=== PATIENT | male | born 1980 | race Hispanic/Latino ===

== ENCOUNTER 2018-03-15 15:31 | Emergency (ER) | payer SELFPAY ==
--- NOTE | 2018-03-15 16:26 | RAD ---
RADIOGRAPH CHEST 1 VIEW: Date: 03/15/18 Time: 3:50 p.m. HISTORY: 37-year-old male status post syncope and collapse. COMPARISON: None. FINDINGS: The lungs are very hypoinflated, making this a limited study. No abdiaziz pulmonary alveolar edema or co nsolidation identified. No effacement of lateral costophrenic angles. No pneumothorax. IMPRESSION: 1. Limited study because of very low lung volumes. 2. No gross evidence of acute cardiopulmonary disease. JN [] POS: CET
--- NOTE | 2018-03-15 16:44 | CT ---
CT BRAIN NONCONTRAST: 03/15/18 HISTORY: 37-year-old male status post loss of consciousness and fall. FINDINGS: There is no midline shift or any other mass effect. There is no evidence of acute intracranial hemor rhage, large cortical infarct, obstructive hydrocephalus, or extraaxial fluid collection. The calvar ium is intact. IMPRESSION: No acute intracranial findings. jn [] POS: CET
[2018-03-15 16:46] LABS: Bilirubin Negative (Negative); Blood, Urine Negative (Negative); Clarity CLEAR (Clear); Glucose, Urine (Dipstick) Negative (Negative); Leukocyte Negative (Negative); Nitrite Negative (Negative); Protein, Urine (Dipstick) Negative (Neg-Trace); Specific Gravity, Urine 1.005 (1.002-1.036); Urobilinogen 0.2 mg/dL (0.2-1.0); pH, Urine 5.5 (5.0-9.0)
--- NOTE | 2018-03-15 16:47 | CT ---
CERVICAL SPINE CT SCAN WITHOUT IV CONTRAST: 03/15/18 HISTORY: 37-year-old male with history of cervical injury following a fall. Mild disc osteophytosis changes noted. No evidence for acute fracture or facet dislocation. IMPRESSION: Unremarkable cervical spine CT. POS: DARWIN
[2018-03-15 16:57] LABS: Hemoglobin 13.8 g/dL (14.0-18.0); Mean Corpuscular HGB CONC 35.7 g/dL (32.0-36.0); Mean Corpuscular Hemoglobin 30.3 pg (27.0-31.0); Mean Corpuscular Volume 84.8 fL (78.0-98.0); Platelet Count 191 thou/uL (130-400); RBC Distribution Width 13.7 % (11.5-14.5); Red Blood Cell (RBC) Count 4.55 mill/uL (4.70-6.10); White Blood Cell (WBC) Count 9.4 thou/uL (4.8-10.8)
[2018-03-15 17:11] LABS: ALT (SGPT) 27 U/L (8-55); AST (SGOT) 32 U/L (5-34); Albumin 3.4 g/dL (3.5-5.0); Alkaline Phosphatase 67 U/L (40-150); Anion Gap 16 mmol/L (10-20); BUN (Urea Nitrogen) 7 mg/dL (8.9-20.6); Bilirubin, Total 0.2 mg/dL (0.2-1.2); Calc. Creatinine Clearance 0 mL/min (70-130); Calcium 7.5 mg/dL (7.8-10.44); Carbon Dioxide 21 mmol/L (22-29); Chloride 106 mmol/L (98-107); Estimated GFR-MDRD Greater than 90; Globulin 3.1 g/dL (2.4-3.5); Glucose 185 mg/dL (70-105); Magnesium 2.1 mg/dL (1.6-2.6); Potassium 3.4 mmol/L (3.5-5.1); Protein, Total 6.5 g/dL (6.0-8.3); Sodium 140 mmol/L (136-145)
[2018-03-15 17:14] LABS: CKMB 3.8 ng/mL (0-6.6); Troponin I Less than 0.010 ng/mL (< 0.028)
[2018-03-15 17:16] LABS: Base Excess-Venous -2.3 mmol/L (0 (+/- 2.5)); Bicarbonate (HCO3v) 23.1 mmol/L (1.0-85.0); CO2 Tension (PvCO2) 41.2 mmHg (41.0-51.0); Calcium, Ionized 0.83 mmol/L (1.12-1.32); Hemoglobin - Calc 13.4 g/dL (12.0-18.0); O2 Tension (PvO2) 87.4 mmHg (35.0-45.0); Potassium 3.3 mmol/L (3.4-4.7); T. Carbon Dioxide 24.4 mmol/L (1.0-85.0); pH (Venous) 7.357 (7.35-7.45); vO2 Saturation-calc 96.3 % (94-98)
[2018-03-15 17:20] LABS: Band 2 % (5-11); Eosinophils 1 % (0-10); Lymphocytes 48 % (21-51); MDiff Complete? YES; Monocytes 5 % (0-10); Neutrophil 43 % (42-75); Nucleated RBC 1 % (0); PLT Morphology Comment Appears Adequate; Reactive Lymphocytes 1 % (0-10)
[2018-03-15] MEDS ORDERED: Calcium Gluc 4.6 MEQ/10 ML (100 MG/ML) ONE (18:01)
[2018-03-15] MEDS ORDERED: Multivitamins, Adult 10 ML, Thiamine HCl 100 MG, Folic Acid 1 MG in Dextrose 5 %-0.45 %... IV SCH (21:00)
[2018-03-15 21:23] LABS: Actual Bicarbonate (HCO3a) 25.2 mEq/L (22-28); Base Excess (BEa) -0.7 mEq/L (-2.0 to +3.0); CO2 Tension 46.7 mmHg (35.0-45.0); Hemoglobin (Hb) 13.5 g/dL (14.0-18.0); O2 Tension (PaO2) 68.4 mmHg (80.0-100.0); pH, Arterial 7.35 (7.35-7.45)
[2018-03-15 21:24] LABS: ALV-art Gradient 22.955 (0-20); Analyzer IN Cardio ER; Calcium, Ionized 1.1 mmol/L (1.12-1.30); Puncture Site RRA
[2018-03-15 21:26] LABS: Amphetamine Not Detected (NotDetected); Barbiturates Screen Not Detected (NotDetected); Benzodiazepine Screen Not Detected (NotDetected); Cocaine Metabolite Screen Not Detected (NotDetected); Medtox Control Line Valid? VALID (VALID); Medtox Reader # READER 1; Methadone Not Detected (NotDetected); Methamphetamine Not Detected (NotDetected); Opiate Screen Not Detected (NotDetected); Oxycodone Screen Not Detected (NotDetected); Phencyclidine (PCP) Not Detected (NotDetected); THC/Cannabinoid Screen Not Detected (NotDetected); Tricyclic Screen Not Detected (NotDetected)
[2018-03-15 21:46] LABS: Acetaminophen Less than 6.0 mcg/mL (10.0-30.0); Alcohol 292 mg/dL (Less than 10); Salicylate Less than 8.0 mg/dL (15.0-30.0)
== END 2018-03-16 07:31 | disposition home or self-care (01) ==
LOC: ERS 15:31
DX: F10.129 Alcohol abuse with intoxication, unspecified (principal); I10 Essential (primary) hypertension; F17.210 Nicotine dependence, cigarettes, uncomplicated
CPT/HCPCS: 36415; 70450; 71045; 72125; 80053; 80306; 80307; 81003; 82330; 82553; 82803; 82805; 83690; 83735; 84484; 85025; 93005; 96361; 96365; 96366; 96375; J3411; J7042

== ENCOUNTER 2018-03-16 13:39 | Emergency (ER) | payer SELFPAY ==
[2018-03-16 14:06] LABS: Bilirubin Negative (Negative); Blood, Urine Negative (Negative); Clarity CLEAR (Clear); Glucose, Urine (Dipstick) Negative (Negative); Leukocyte Negative (Negative); Nitrite Negative (Negative); Protein, Urine (Dipstick) Negative (Neg-Trace); Specific Gravity, Urine 1.002 (1.002-1.036); Urobilinogen 0.2 mg/dL (0.2-1.0); pH, Urine 6.5 (5.0-9.0)
== END 2018-03-16 15:25 | disposition home or self-care (01) ==
LOC: ERS 13:39
DX: F10.129 Alcohol abuse with intoxication, unspecified (principal); E11.9 Type 2 diabetes mellitus without complications; I10 Essential (primary) hypertension; F17.210 Nicotine dependence, cigarettes, uncomplicated
CPT/HCPCS: 81003; 99284

== ENCOUNTER 2018-03-17 11:43 | Emergency (ER) | payer SELFPAY | END 2018-03-17 13:10 | disposition home or self-care (01) | LOC: ERS 11:43 | DX: F10.10 Alcohol abuse, uncomplicated (principal); E11.9 Type 2 diabetes mellitus without complications; I10 Essential (primary) hypertension; F17.210 Nicotine dependence, cigarettes, uncomplicated | CPT/HCPCS: 99284 ==

== ENCOUNTER 2018-03-19 15:38 | Emergency (ER) | payer SELFPAY | END 2018-03-19 16:52 | disposition home or self-care (01) | LOC: ERS 15:38 | DX: F10.129 Alcohol abuse with intoxication, unspecified (principal); F17.210 Nicotine dependence, cigarettes, uncomplicated; I10 Essential (primary) hypertension; E11.9 Type 2 diabetes mellitus without complications | CPT/HCPCS: 99284 ==

== ENCOUNTER 2018-03-19 18:20 | Emergency (ER) | payer SELFPAY | END 2018-03-19 19:56 | disposition home or self-care (01) | LOC: ERS 18:20 | DX: F10.129 Alcohol abuse with intoxication, unspecified (principal); I10 Essential (primary) hypertension; F17.210 Nicotine dependence, cigarettes, uncomplicated; E11.9 Type 2 diabetes mellitus without complications | CPT/HCPCS: 99284 ==

== ENCOUNTER 2018-03-20 15:28 | Observation (INO) | payer OTHER, SELFPAY ==
[2018-03-20] MEDS ORDERED: Lorazepam 2 MG/ML VIAL ONE (15:40)
[2018-03-20] MEDS ORDERED: Folic Acid 1 MG TAB ONE (16:00)
[2018-03-20 16:09] LABS: #Lymphocytes 2.4 thou/uL (1.20-3.40); #Monocytes 0.5 thou/uL (0.11-0.59); #Neutrophils 2.2 thou/uL (1.40-6.50); %Basophils 0.8 % (0.0-1.0); %Eosinophils 0.9 % (0.0-10.0); %Monocytes 9.9 % (0.0-10.0); %Neutrophils 42.4 % (42.0-75.0); Hemoglobin 15.5 g/dL (14.0-18.0); Mean Corpuscular HGB CONC 35.4 g/dL (32.0-36.0); Mean Corpuscular Volume 84.7 fL (78.0-98.0); Platelet Count 152 thou/uL (130-400); Red Blood Cell (RBC) Count 5.18 mill/uL (4.70-6.10); White Blood Cell (WBC) Count 5.2 thou/uL (4.8-10.8)
[2018-03-20] MEDS ORDERED: Thiamine HCl 200 MG/2 ML VIAL SLOW IVP SCH (16:15)
[2018-03-20 16:23] LABS: ALT (SGPT) 22 U/L (8-55); AST (SGOT) 28 U/L (5-34); Alkaline Phosphatase 77 U/L (40-150); Anion Gap 22 mmol/L (10-20); BUN (Urea Nitrogen) Less than 4 mg/dL (8.9-20.6); Bilirubin, Total 0.6 mg/dL (0.2-1.2); Calc. Creatinine Clearance 0 mL/min (70-130); Calcium 8.6 mg/dL (7.8-10.44); Carbon Dioxide 19 mmol/L (22-29); Chloride 100 mmol/L (98-107); Estimated GFR-MDRD Greater than 90; Globulin 3.5 g/dL (2.4-3.5); Glucose 129 mg/dL (70-105); Protein, Total 7.5 g/dL (6.0-8.3); Sodium 137 mmol/L (136-145)
[2018-03-20] MEDS ORDERED: Ondansetron HCl/PF 4 MG/2 ML Vial ONE (16:23)
[2018-03-20 16:27] LABS: Acetaminophen Less than 6.0 mcg/mL (10.0-30.0); Alcohol 13 mg/dL (Less than 10); CK (CPK) 315 U/L (30-200); Salicylate Less than 8.0 mg/dL (15.0-30.0)
[2018-03-20 16:54] LABS: Bilirubin Negative (Negative); Blood, Urine Negative (Negative); Clarity CLEAR (Clear); Glucose, Urine (Dipstick) Negative (Negative); Leukocyte Negative (Negative); Nitrite Negative (Negative); Protein, Urine (Dipstick) Negative (Neg-Trace); Specific Gravity, Urine 1.004 (1.002-1.036); Urobilinogen 0.2 mg/dL (0.2-1.0)
[2018-03-20 17:04] LABS: Amphetamine Not Detected (NotDetected); Barbiturates Screen Not Detected (NotDetected); Benzodiazepine Screen Not Detected (NotDetected); Cocaine Metabolite Screen Not Detected (NotDetected); Medtox Control Line Valid? VALID (VALID); Medtox Reader # READER 1; Methadone Not Detected (NotDetected); Methamphetamine Not Detected (NotDetected); Opiate Screen Not Detected (NotDetected); Oxycodone Screen Not Detected (NotDetected); Phencyclidine (PCP) Not Detected (NotDetected); THC/Cannabinoid Screen Not Detected (NotDetected); Tricyclic Screen Not Detected (NotDetected)
[2018-03-20] MEDS ORDERED: Dextrose 5% in Water 1,000 ML IV PRN (18:45)
[2018-03-20] MEDS ORDERED: Dextrose 50% Abboject 50 ML SYRINGE SLOW IVP PRN (18:45)
[2018-03-20] MEDS ORDERED: Insulin Regular 300 UNITS/3 ML VIAL SC PRN (18:45)
--- NOTE | 2018-03-20 18:56 | PDOC.FPRHP ---
- History of Present Illness Chief Complaint: alcohol withdrawal History of Present Illness: Patient is a 37 yo M with a PMH significant for multiple visits to the ED within the last week for alcohol intoxication and withdrawal. He was brought to correction by police yesterday after his last visit to the ED. He stated he started feeling "really bad" today and "like he was going to faint." He endorses drinking daily for the past month after his girlfriend threw him out of her house. He states he drinks 5 Mad dog beers/day (each 1 L) or until he passes out. He endorses having abdominal pain beginning today that is located in the mid epigastric region and radiates to the back. His pain is 10/10. He notes having darker stools than normal but no abdiaziz blood. He states he has been nauseous and has vomited over 5 times today. The consistency has been white fluid and he denies vomiting blood. He endorses subjective fevers for the past couple days in addition to shaking. He also endorses a headache the past couple days. Patient has not been able to tolerate fluid or food the past day. He has mostly been drinking and not eating much the past several days. ED Course: IVF, zofran, multivitamins, folic acid, thiamine, lorazepam X 1 - Allergies/Adverse Reactions Allergies Allergy/AdvReac Type Severity Reaction Status Date / Time No Known Drug Allergies Allergy Unverified 03/15/18 20:40 - History PMHx: DM, HTN, sleep apnea, fatty liver PSHx: none FHx: non contributory Social: 25 pack year hx, occasionally smokes week, heavy drinker - about 1 L/day , denies drug use - Review of Systems General: reports: fever/chills, weight/appetite/sleep changes. denies: night sweats, fatigue Eyes: denies: eye pain, vision changes ENT: denies: nasal congestion, rhinorrhea Respiratory: reports: shortness of breath. denies: cough, congestion Cardiovascular: reports: chest pain, paroxysmal nocturnal dyspnea. denies: palpitation, edema Gastrointestinal: reports: nausea, vomiting, abdominal pain, other (dark blood but not sure if its blood or not). denies: diarrhea, constipation Genitourinary: denies: incontinence, dysuria, polyuria Skin: reports: rashes (bites all over) Musculoskeletal: denies: pain, tenderness, stiffness Neurological: reports: weakness. denies: numbness, syncope - Vital signs BP: 156/103 HR: 97 RR: 20 Tmax: 99.5 Pox: 95% on RA Wt: 79.38kg - Physical Exam Constitutional: awake, alert and oriented -Constitutional: Patient looks diaphoretic, uncomfortable and in mild distress on the bed, cooperative, poorly groomed HEENT: normocephalic and atraumatic, PERRLA, EOMI, grossly normal vision, grossly normal hearing, MMM Chest: no-tender to palpation Heart: RRR, normal S1/S2, no murmurs/rubs/gallops, pulses present Lungs: CTAB, no respiratory distress, good air movement, no retractions Abdomen: soft, bowel sounds present, no masses/distention -Abdomen: Diffusely TTP, more in the LLQ, mild guarding Musculoskeletal: normal structure, normal tone Neurological: no focal deficit, CN II-XII intact -Skin: multiple bites over extremities and abdomen Heme/Lymphatic: no unusual bruising or bleeding, no purpura, no petechia Psychiatric: normal mood and affect FMR H&P: Results - Labs Result Diagrams: 03/20/18 15:53 03/20/18 15:53 Lab results: WBC 5.2 thou/uL (4.8-10.8) 03/20/18 15:53 Hgb 15.5 g/dL (14.0-18.0) 03/20/18 15:53 Hct 43.9 % (42.0-52.0) 03/20/18 15:53 MCV 84.7 fL (78.0-98.0) 03/20/18 15:53 Plt Count 152 thou/uL (130-400) 03/20/18 15:53 Neutrophils % 42.4 % (42.0-75.0) 03/20/18 15:53 Sodium 137 mmol/L (136-145) 03/20/18 15:53 Potassium 4.0 mmol/L (3.5-5.1) 03/20/18 15:53 Chloride 100 mmol/L (98-107) 03/20/18 15:53 Carbon Dioxide 19 mmol/L (22-29) L 03/20/18 15:53 BUN Less than 4 mg/dL (8.9-20.6) L 03/20/18 15:53 Creatinine 0.73 mg/dL (0.6-1.3) 03/20/18 15:53 Glucose 129 mg/dL (70-105) H 03/20/18 15:53 Calcium 8.6 mg/dL (7.8-10.44) 03/20/18 15:53 Total Bilirubin 0.6 mg/dL (0.2-1.2) 03/20/18 15:53 AST 28 U/L (5-34) 03/20/18 15:53 ALT 22 U/L (8-55) 03/20/18 15:53 Alkaline Phosphatase 77 U/L (40-150) 03/20/18 15:53 Creatine Kinase 315 U/L (30-200) H 03/20/18 15:53 Serum Total Protein 7.5 g/dL (6.0-8.3) 03/20/18 15:53 Albumin 4.0 g/dL (3.5-5.0) 03/20/18 15:53 Lipase 28 U/L (8-78) 03/20/18 15:53 Urine Ketones Negative mg/dL (Negative) 03/20/18 16:39 Urine Blood Negative (Negative) 03/20/18 16:39 Urine Nitrite Negative (Negative) 03/20/18 16:39 Ur Leukocyte Esterase Negative (Negative) 03/20/18 16:39 - EKG Interpretation EKG: normal sinus, no st elevation, normal intervals FMR H&P: A/P - Problem List (1) Gastritis Current Visit: Yes Status: Acute Code(s): K29.70 - GASTRITIS, UNSPECIFIED, WITHOUT BLEEDING (2) Alcohol withdrawal Current Visit: Yes Status: Acute Code(s): F10.239 - ALCOHOL DEPENDENCE WITH WITHDRAWAL, UNSPECIFIED (3) Diabetes Current Visit: Yes Status: Acute Code(s): E11.9 - TYPE 2 DIABETES MELLITUS WITHOUT COMPLICATIONS (4) Hypertension Current Visit: Yes Status: Acute Code(s): I10 - ESSENTIAL (PRIMARY) HYPERTENSION (5) Alcohol abuse Current Visit: Yes Status: Acute Code(s): F10.10 - ALCOHOL ABUSE, UNCOMPLICATED (6) Tobacco abuse Current Visit: Yes Status: Acute Code(s): Z72.0 - TOBACCO USE - Plan 1. Alcohol Withdrawal - Continue with banana bag to repleat thiamin and vitamins - Will begin a librium taper - Continue to monitor mental status - Placed on ASE protocol 2. Alcoholic Gastritis - Likely 2/2 to pt's alochol abuse vs possible PUD - Will give GI cocktail and start protonix - Will obtain FOBT due to hx of melena - Lipase and LFTs within normal limits 3. DM - Ordered AIC - initial glucose in the ED was 129 - Will start mild SS with accuchecks 4. HTN - Current BP in the ED is 156/103 - Will start lisinopril; labetolol PRN for SBP > 180 - Continue to monitor BPs 5. Alcohol Use - see #1 - Pt expresses desire to cut back 6. Tobacco Use - Will encourage and public relations counselor pt to quit tobacco use 7. Fluid, electrolyte and nutrition - Will start maintenance fluids as pt's CK was elevated - Repeat CMP in the AM - Will start regular diet as tolerated Disposition/LOS: DISPO: likely < 2 midnights CODE: FULL Case discussed with Dr. Nettles FMR H&P: Upper Level - Pertinent history 37 y/o M presents with abdominal pain and increased alcohol intake. Cam from correction with these sx that began this AM. Started drinking heavily 1 months ago when his GF broke up with him. Has had withdrawal sx in the past month. Does also have a hx/o seizures. Abdominal pain is epigastric mostly, but also diffuse. Has complained of dark stools recently, w/o bloody stool of vomit. Associated vomiting, MCNULTY, sweating, decreased food intake, and fatigue. Last drank yesterday. - Pertinent findings GEN: mild distress, diaphoretic CARDIO/chest: RRR, no MRG. Mild tachycardia RESP: Lungs CTAB, no wheezing or ronchi Extremities: no edema, pulses strong Neuro: no focal deficits, CN intact SKIN: insect bites on L arm and surrounding umbilicus PSYCH: A&O x4, thoughts normal - Plan Date/Time: 03/20/181846 Fredy Madrigal, have evaluated this patient and agree with findings/plan as outlined by internet specialist resident. Pertinent changes/additions are listed here. 1. ETOH Withdrawal: Pt tachycardic and diaphoretic after Ativan in ED. Will start Librium taper, monitor vitals and use ASE protocol. 2. Gastritis: Likely 2/2 heavy ETOH consumption. Will place on protonix and check guaiac. Lipase and LFTs WNL. 3. T2DM: Will start SSI. Not on any home medications. Consider Metformin upon discharge. Check A1c. 4. HTN: Will start medication as has been elevated in ED. Goal SBP <180 5. Metabolic Acidosis: AG 21; Likely from ETOH. Will follow CMP. 6. FEN: Continue IVF resuscitation as CK was mildly elevated. Regular diet. Replete lytes as needed. DVT ppx: SCDs until FOBT returns Attending Addendum - Attending Addendum Date/Time: 03/20/18 5230 I personally evaluated the patient and discussed the management with Dr. Bhardwaj/ Mesha. I agree with the History, Examination, Assessment and Plan documented above with any addition or exceptions noted below. Patient with history of excessive EtOH intake over the last few weeks, last drink 24 hours ago, presenting with pre-syncope symptoms, palpitations, diaphoresis, and mild "nightmares/hallucinations" when he closes his eyes. Reports these symptoms over the last 24 hours since taking his last drink. Has previously been drinking in excess of 4-5L of EtOH daily for the last 1 month. Also endorses midepigastric abdominal pain that began this morning. Denies change in bowel habits though states his BM has been darker recently. Reports worsening pain with drinking water and with eating food. Patient exam significant for unkempt gentleman in NAD. There are no tremors noted on exam. His abdomen is soft and mildly tender to palpation diffusely. He is in LE handcuffs. Labs pertinent for mild AG acidosis, elevated CK. Vital signs currently stable. Patient to be admitted for 1. Concern for EtOH withdrawal- will start on ASE protocol, give baseline Librium, and monitor for other symptoms. Continue vitamin supplementation, as well as Banana bag. 2. Possible EtOH gastritis versus PUD- give GI cocktail and begin Protonix. Check FOBT. No anemia to suggest acute blood loss. Normal lipase excludes pancreatitis. Non surgical abdomen. 3. EtOH abuse- counselling about cessation. Dispo- will monitor overnight and if symptoms controlled on librium taper and no change in abdominal pain, can likely be discharged back to correction with outpatient interactive media marketing specialist.
[2018-03-20] MEDS: Multivit, Therapeutic 1 TAB PO SCH (20:48)
[2018-03-20] MEDS ORDERED: traMADol HCl 50 MG TAB PO SCH (21:15)
[2018-03-20] MEDS ORDERED: Ondansetron ODT 4 MG TAB PO PRN (22:43)
[2018-03-20] MEDS ORDERED: Labetalol 100 MG TAB PO PRN (22:43)
[2018-03-20] MEDS ORDERED: chlordiazePOXIDE HCl 25 MG CAP PO SCH (22:43)
[2018-03-20] MEDS ORDERED: Ondansetron HCl/PF 4 MG/2 ML Vial IVP PRN (22:43)
[2018-03-20] MEDS ORDERED: Multivitamins, Adult 10 ML, Folic Acid 1 MG, Thiamine HCl 100 MG in Dextrose 5 %-0.45 %... IV SCH (22:43)
[2018-03-20] MEDS ORDERED: Lidocaine 2% Viscous Solution 20 ML, Aluminum & Magnesium Hydroxide 30 ML, Donnatal Eli... SSW SCH (22:43)
[2018-03-20 23:07] LABS: Hemoglobin A1c 5.9 % (4.0-6.0)
[2018-03-20] MEDS ORDERED: diphenhydrAMINE 25 MG CAP PO PRN (23:44)
[2018-03-21] MEDS ORDERED: chlordiazePOXIDE HCl 25 MG CAP PO SCH (00:15)
[2018-03-21] MEDS: Lactated Ringer's 1,000 ML IV SCH ×2 (00:20→00:25)
[2018-03-21] MEDS: Multivit, Therapeutic 1 TAB PO SCH (00:21)
[2018-03-21] MEDS: chlordiazePOXIDE HCl 25 MG CAP PO SCH ×2 (03:28→09:56)
[2018-03-21 04:09] LABS: ALT (SGPT) 18 U/L (8-55); AST (SGOT) 26 U/L (5-34); Albumin 3.1 g/dL (3.5-5.0); Alkaline Phosphatase 65 U/L (40-150); Anion Gap 15 mmol/L (10-20); BUN (Urea Nitrogen) Less than 4 mg/dL (8.9-20.6); Calc. Creatinine Clearance 1 mL/min (70-130); Calcium 8.3 mg/dL (7.8-10.44); Carbon Dioxide 20 mmol/L (22-29); Chloride 102 mmol/L (98-107); Estimated GFR-MDRD Greater than 90; Globulin 3.3 g/dL (2.4-3.5); Glucose 123 mg/dL (70-105); Potassium 3.6 mmol/L (3.5-5.1); Protein, Total 6.4 g/dL (6.0-8.3); Sodium 133 mmol/L (136-145)
--- NOTE | 2018-03-21 06:49 | PDOC.FM ---
- Subjective Subjective: No acute events overnight. Pt reports diffuse abdominal discomfort, denies NVDC. Reports rash which he has noticed since he has been passing out from intoxication and sleeping outside. Denies tactile, auditory and visual hallucinations. No tachycardia on tele monitor. - Objective Vital Signs & Weight: Vital Signs (12 hours) Temp Pulse Resp BP BP Pulse Ox 03/21/18 04:09 173/101 H 03/21/18 03:50 97.9 F 68 18 173/101 H 95 03/21/18 00:22 158/96 H 03/20/18 23:48 98.1 F 81 20 158/96 H 93 L 03/20/18 20:45 99.1 F 91 20 157/86 H 94 L 03/20/18 19:00 159/93 H Result Diagrams: 03/20/18 15:53 03/21/18 03:46 <Nelson Nj - Last Filed: 03/21/18 06:53> - Objective Vital Signs & Weight: Vital Signs (12 hours) Temp Pulse Resp BP BP Pulse Ox 03/21/18 07:50 98.3 F 73 16 167/101 H 98 03/21/18 04:09 173/101 H 03/21/18 03:50 97.9 F 68 18 173/101 H 95 03/21/18 00:22 158/96 H 03/20/18 23:48 98.1 F 81 20 158/96 H 93 L Result Diagrams: 03/20/18 15:53 03/21/18 03:46 <Tam Nettles - Last Filed: 03/21/18 09:37> Phys Exam - Physical Examination Constitutional: NAD HEENT: PERRLA, moist MMs, sclera anicteric b/l conjunctival injection Neck: no nodes, no JVD Respiratory: no wheezing, no rales, no rhonchi, clear to auscultation bilateral Cardiovascular: RRR, no significant murmur, no rub Gastrointestinal: soft, non-tender, no distention, positive bowel sounds Musculoskeletal: no edema, pulses present Neurological: non-focal, moves all 4 limbs Deviation from normal: numerous pustules around b/l ankles, abdomen and b/l arms <Nelson Nj - Last Filed: 03/21/18 06:53> Dx/Plan (1) Alcohol withdrawal Code(s): F10.239 - ALCOHOL DEPENDENCE WITH WITHDRAWAL, UNSPECIFIED Status: Acute (2) Alcohol abuse Code(s): F10.10 - ALCOHOL ABUSE, UNCOMPLICATED Status: Acute (3) Hypertension Code(s): I10 - ESSENTIAL (PRIMARY) HYPERTENSION Status: Acute (4) Abdominal pain Code(s): R10.9 - UNSPECIFIED ABDOMINAL PAIN Status: Acute - Plan Plan: 1. Alcohol Withdrawal - Continue with banana bag to repleat thiamin and vitamins - cont librium taper - cont aly CERVANTES stable for DC to fpc today 2. Alcoholic Gastritis - more diffusely tender although no pain with deep auscultation on exam and no rebound - will check FOBT - pending normal results, DC today 3. DM - A1C shows pre-DMII - cont accuchecks 4. HTN - Current BP in the ED is 156/103 - Will start lisinopril; labetolol PRN for SBP > 180 - Continue to monitor BPs - amlodipine started, monitor OP - stable for DC to home with librium taper 5. Alcohol Use - see #1 - Pt expresses desire to cut back 6. Fluid, electrolyte and nutrition - advance diet 7. Rash - pt reports sleeping outside - will order anti-itch cream and monitor - recommend OP f/u - stable for DC Dispo: Pts vitals and clinical exam do not support severe withdrawal. Likely stable for DC to home with librium taper. Advance diet and dc later today if tolerating PO. <Nelson Nj - Last Filed: 03/21/18 06:53> (1) Gastritis Code(s): K29.70 - GASTRITIS, UNSPECIFIED, WITHOUT BLEEDING Status: Acute (2) Alcohol withdrawal Code(s): F10.239 - ALCOHOL DEPENDENCE WITH WITHDRAWAL, UNSPECIFIED Status: Acute (3) Diabetes Code(s): E11.9 - TYPE 2 DIABETES MELLITUS WITHOUT COMPLICATIONS Status: Acute (4) Hypertension Code(s): I10 - ESSENTIAL (PRIMARY) HYPERTENSION Status: Acute (5) Alcohol abuse Code(s): F10.10 - ALCOHOL ABUSE, UNCOMPLICATED Status: Acute (6) Tobacco abuse Code(s): Z72.0 - TOBACCO USE Status: Acute <Tam Nettles - Last Filed: 03/21/18 09:37> Attending Addendum - Attending Addendum Date/Time: 03/21/18 4528 I personally evaluated the patient and discussed the management with Dr. Nj. I agree with the History, Examination, Assessment and Plan documented above with any addition or exceptions noted below. Patient showing no external evidence of EtOH withdrawal and vitals are stable. Will continue on Librium taper. He has no tachycardia or tremor. He continues to complain of abdominal pain but has a benign exam and his tenderness resolves with distraction. He likely has a component of gastritis and will continue PPI on discharge. Alcohol cessation discussed. His Hgb is stable and so no concern for bleeding PUD. If tolerating PO this morning, can d/c back to fpc on librium taper. Insect bites scattered on body, recommended calamine lotion and Benadryl PRN. <Tam Nettles - Last Filed: 03/21/18 09:37>
[2018-03-21] MEDS ORDERED: Calamine/Zinc Oxide 177 ML LOTION TP PRN (06:58)
[2018-03-21] MEDS ORDERED: Lisinopril 10 MG TAB PO SCH (09:00)
[2018-03-21] MEDS ORDERED: Amlodipine 5 MG TAB PO SCH (09:00)
[2018-03-21 15:57] VITALS: BP 152/93; TEMP 99
--- NOTE | 2018-03-22 08:39 | DIS-2 ---
LOCATION: [place], [place] DATE OF SERVICE: 03/21/2018 DATE OF ADMISSION: 03/20/2018 DATE OF DISCHARGE: 03/21/2018 ADMITTING ATTENDING: Dr. Tam Nettles. DISCHARGE ATTENDING: Dr. Tam Nettles. CONSULTATIONS: None. PROCEDURES: None. PRIMARY DIAGNOSES: 1. Alcohol withdrawal. 2. Gastritis. SECONDARY DIAGNOSES: 1. Hypertension. 2. Alcohol abuse. 3. Tobacco abuse. DISCHARGE MEDICATIONS: 1. Amlodipine 5 mg p.o. daily. 2. Librium 25 mg p.o. q.i.d. on day #1, then 25 mg p.o. t.i.d. on day #2, then 25 mg p.o. b.i.d. day #3, and 25 mg daily on day #4. 3. Lisinopril 10 mg p.o. daily. 4. Protonix 40 mg daily. DISCONTINUED MEDICATIONS: None. HISTORY OF PRESENT ILLNESS AND HOSPITAL COURSE: Patient is a 37-year-old male with past history of a lcohol abuse. He initially presented to the ED from retirement after complaining of tremulousness and abdo gilberto pain. Patient reported that he felt that he was going to faint. He did not have any seizures prior to arrival and he has had multiple ER visits secondary to alcohol intoxication and the previous week prior to admission. He reported that his girlfriend had thrown him out of her house and he was initially from [place]. Since then, the patient had been homeless and reported drinking approxim ately five one-liter Mad Dog beers a day until he passed out at various places outside. Patient also endorsed some mid epigastric abdominal pain with some radiation to the back. He denied any melena o r bloody stools. Overall, the patient was admitted for alcohol withdrawal given a banana bag and mul tivitamin and started on ASE protocol with Ativan and then the following day, he started on the Libri um taper. Considering the patient's epigastric pain, this was thought to be secondary to his alcohol abuse and possible peptic ulcer disease versus alcoholic gastritis. He was given a GI cocktail with some resolution of symptoms and ultimately started on omeprazole for his symptoms, in addition to in structions that to quit drinking. Regarding the patient's hypertension, initial blood pressure in ED was 156/103 and he remained persistently hypertensive throughout his hospitalization. He was sebastian bsequently started on lisinopril and Coreg with instructions to continue to monitor his blood pressur e and follow up with [facility] discharge. Ultimately, he had an uncomplica darion hospital course and was treated for acute alcohol withdrawal and discharged to home in stable con dition with instructions to discontinue alcohol abuse. Per the patient, he will be heading back to [facility] where he was originally from, had a job prior to moving out to the state with his girlfrien d. He was given information and resources to various shelters in the area in addition to a medicatio n assistance programs. DISPOSITION: 1. The patient left the hospital in stable condition. 2. Location: Home. 3. Diet: Heart-healthy. 4. Activity: Ad-erasmo. 5. Follow up with primary care provider in 7-10 days following discharge.
== END 2018-03-21 17:52 | disposition home or self-care (01) ==
LOC: ERS 15:28 → INTOOBSV 17:31 → ERHOLD 17:31 → 2SE 19:00
PROVIDERS: ADMIT Student in an Organized Health Care Education/Training Program; ATTEND Student in an Organized Health Care Education/Training Program
DX: F10.10 Alcohol abuse, uncomplicated (principal); R10.13 Epigastric pain; E11.9 Type 2 diabetes mellitus without complications; I10 Essential (primary) hypertension; K76.0 Fatty (change of) liver, not elsewhere classified; G47.30 Sleep apnea, unspecified; F17.210 Nicotine dependence, cigarettes, uncomplicated; E87.2 Acidosis; K29.60 Other gastritis without bleeding; R21 Rash and other nonspecific skin eruption
CPT/HCPCS: 36415; 36416; 80053; 80306; 80307; 81003; 82550; 83036; 83690; 84443; 85025; 93005; 96361; 96366; 96374; 96375; G0378; J2060; J2405; J3411; J7042; J7120